=== PATIENT | male | born 1930 | race Caucasian/White ===

== ENCOUNTER 2016-09-27 01:55 | Inpatient (IN) | payer MEDICARE ==
[~2016-09-27] VITALS: Ht 175.3 cm; Wt 85.7 kg
[2016-09-27] MEDS ORDERED: ACETAMINOPHEN 325 MG TABLET PO PRN (03:00)
[2016-09-27] MEDS ORDERED: DEXAMETHASONE 4 MG TABLET PO ONE (03:00)
[2016-09-27] MEDS ORDERED: ONDANSETRON HCL/PF 4 MG/2 ML VIAL IVP PRN (03:00)
[2016-09-27] MEDS ORDERED: ZOLPIDEM TARTRATE 5 MG TABLET PO PRN (03:00)
[2016-09-27 06:00] VITALS: BP 131/65
[2016-09-27 07:16] LABS: BASOPHILS % (AUTO) 0.2 % (0.0-2.0); DIFF TOTAL % 100 %; EOSINOPHILS # (AUTO) 0.1 /CMM (0.0-0.7); EOSINOPHILS % (AUTO) 2.1 % (0.0-6.0); HEMATOCRIT 40 % (39-51); HEMOGLOBIN 13.3 g/dL (13.5-17.5); LYMPHOCYTES # (AUTO) 0.9 /CMM (0.8-4.8); LYMPHOCYTES % (AUTO) 13.5 % (20.0-44.0); MEAN CORPUSCULAR HEMOGLOBIN 32 PG (26.0-33.0); MEAN CORPUSCULAR HGB CONC 34 g/dl (31.0-36.0); MEAN CORPUSCULAR VOLUME 95 fL (80-96); MONOCYTES # (AUTO) 0.9 /CMM (0.1-1.30); MONOCYTES % (AUTO) 13.7 % (2.0-12.0); NEUTROPHILS # (AUTO) 4.9 /CMM (1.8-8.9); NEUTROPHILS % (AUTO) 70.5 % (43.0-81.0); PLATELET COUNT (AUTO) 132 /CMM (150-450); RED BLOOD CELL COUNT(AUTO) 4.16 MIL/uL (4.5-6.0); WHITE BLOOD COUNT (AUTO) 6.9 K/uL (4.3-11.0)
[2016-09-27] MEDS ORDERED: ATOR40TA PO (07:30)
[2016-09-27] MEDS ORDERED: DIGO125T PO (07:30)
[2016-09-27] MEDS ORDERED: ALCO1MED TP (07:30)
[2016-09-27] MEDS ORDERED: INSU100V7 SQ (07:30)
[2016-09-27] MEDS ORDERED: APIX5TAB PO (07:30)
[2016-09-27] MEDS ORDERED: FINA5TAB4 PO (07:30)
[2016-09-27] MEDS ORDERED: OMEP20CA10 PO (07:30)
[2016-09-27] MEDS ORDERED: ONDA-25 PO (07:30)
[2016-09-27] MEDS ORDERED: TAMS0.4C34 PO (07:30)
[2016-09-27] MEDS ORDERED: MULT1TAB69 PO (07:30)
[2016-09-27] MEDS ORDERED: FOLI1TAB16 PO (07:30)
[2016-09-27] MEDS ORDERED: CARV6.252 PO (07:30)
[2016-09-27 07:31] VITALS: BP 131/65
[2016-09-27] MEDS ORDERED: CRAN500C4 PO (07:44)
[2016-09-27] MEDS ORDERED: INSU100I14 SQ (07:44)
[2016-09-27 08:00] VITALS: BP 101/65
[2016-09-27] MEDS: ALBUTEROL HALF STRENGTH 1.25 MG/3 ML VIAL.NEB NEB SCH ×5 (08:05→23:33)
[2016-09-27] MEDS: IPRATROPIUM NEB FS 0.5 MG/2.5 ML AMPUL.NEB NEB SCH ×5 (08:05→23:33)
[2016-09-27 08:07] LABS: PHOSPHORUS 3.2 mg/dL (2.5-4.9); POTASSIUM 3.8 mmol/L (3.5-5.1)
[2016-09-27] MEDS ORDERED: IV SET PRIMARY PUMP SET 1 EA INFUS.SET MC ONE (08:45)
[2016-09-27] MEDS ORDERED: SECONDARY IV SET 1 EA INFUS.SET MC ONE ×3 (08:46→12:34)
[2016-09-27] MEDS: PANTOPRAZOLE 40 MG TABLET.DR PO SCH (08:56)
[2016-09-27] MEDS: IV NS 0.9% 1,000 ML IV PRN ×2 (08:57→23:47)
[2016-09-27] MEDS: PIPERACILLIN /TAZOBACTAM 3.375 G in IV D5W 50 ML IV SCH ×4 (09:07→23:07)
[2016-09-27] MEDS: VANCOMYCIN 1 GM in IV D5W 250 ML IV SCH ×2 (11:54→23:47)
[2016-09-27] MEDS ORDERED: DEXTROSE 50%-WATER 50 ML DISP.SYRIN IV PRN (12:30)
[2016-09-27] MEDS ORDERED: ATORVASTATIN 40 MG TABLET PO SCH (12:30)
[2016-09-27] MEDS: Magnesium 1GM/D5W 100ML PREMIX 100 ML IV SCH ×2 (15:09→16:17)
[2016-09-27] MEDS: FOLIC ACID 1 MG TABLET PO SCH (15:12)
[2016-09-27] MEDS: DIGOXIN 0.125 MG TABLET PO SCH (15:12)
[2016-09-27] MEDS ORDERED: Z GUARD REMEDY 2 OZ OINT TP PRN (15:30)
[2016-09-27] MEDS ORDERED: FEE PK DOSING 1 MIN EA MC ONE (15:37)
[2016-09-27 16:00] VITALS: BP 130/68
[2016-09-27] MEDS ORDERED: Magnesium 1GM/D5W 100ML PREMIX 100 ML IV SCH (16:30)
[2016-09-27] MEDS: BLOOD SUGAR DIAGNOSTIC 1 EACH STRIP VI SCH ×2 (17:24→21:29)
[2016-09-27] MEDS: INSULIN REGULAR, HUMAN 100 UNIT/ML 3 ML VIAL SQ PRN (17:28)
[2016-09-27] MEDS: CARVEDILOL 6.25 MG TABLET PO SCH (17:31)
[2016-09-27 20:00] VITALS: BP 127/65
[2016-09-27] MEDS: APIXABAN 5 MG TABLET PO SCH (20:00)
[2016-09-27] MEDS: TAMSULOSIN 0.4 MG CAP.SR.24H PO SCH (21:27)
[2016-09-27] MEDS: ATORVASTATIN 40 MG TABLET PO SCH (21:27)
[2016-09-27] MEDS: *INSULIN REGULAR(HUMULIN R)HUM 100 UNIT/ML VIAL SQ PRN (21:32)
[2016-09-27] MEDS: INSULIN DETEMIR 100 UNIT/ML CARTRIDGE SQ SCH (21:33)
[2016-09-28] MEDS: ALBUTEROL HALF STRENGTH 1.25 MG/3 ML VIAL.NEB NEB SCH ×5 (03:26→20:13)
[2016-09-28] MEDS: IPRATROPIUM NEB FS 0.5 MG/2.5 ML AMPUL.NEB NEB SCH ×5 (03:26→20:13)
[2016-09-28] MEDS: PIPERACILLIN /TAZOBACTAM 3.375 G in IV D5W 50 ML IV SCH ×4 (05:36→23:14)
[2016-09-28] MEDS: BLOOD SUGAR DIAGNOSTIC 1 EACH STRIP VI SCH ×4 (05:37→21:19)
[2016-09-28 07:18] LABS: BASOPHILS % (AUTO) 0.7 % (0.0-2.0); DIFF TOTAL % 100 %; EOSINOPHILS # (AUTO) 0.1 /CMM (0.0-0.7); EOSINOPHILS % (AUTO) 2.2 % (0.0-6.0); HEMATOCRIT 37 % (39-51); HEMOGLOBIN 12.3 g/dL (13.5-17.5); LYMPHOCYTES # (AUTO) 1.3 /CMM (0.8-4.8); LYMPHOCYTES % (AUTO) 21.3 % (20.0-44.0); MEAN CORPUSCULAR HEMOGLOBIN 32 PG (26.0-33.0); MEAN CORPUSCULAR HGB CONC 34 g/dl (31.0-36.0); MEAN CORPUSCULAR VOLUME 95 fL (80-96); MONOCYTES % (AUTO) 16.7 % (2.0-12.0); NEUTROPHILS # (AUTO) 3.7 /CMM (1.8-8.9); NEUTROPHILS % (AUTO) 59.1 % (43.0-81.0); PLATELET COUNT (AUTO) 130 /CMM (150-450); RED BLOOD CELL COUNT(AUTO) 3.85 MIL/uL (4.5-6.0); WHITE BLOOD COUNT (AUTO) 6.2 K/uL (4.3-11.0)
[2016-09-28 07:52] LABS: ALBUMIN 2.3 g/dL (3.4-5.0); BILIRUBIN,TOTAL 0.6 mg/dL (0.2-1.0); CALCIUM, SERUM 7.5 mg/dL (8.5-10.1); POTASSIUM 3.6 mmol/L (3.5-5.1); TOTAL PROTEIN, SERUM 6.1 g/dL (6.4-8.2)
[2016-09-28 07:59] LABS: THYROID STIMULATING HORMONE 1.324 uIU/mL (0.358-3.74)
[2016-09-28 08:00] VITALS: BP 130/59
[2016-09-28 08:04] LABS: BAND % (MANUAL) 5 % (0.0-5.0); EOSINOPHILS % (MANUAL) 4 % (0-4); LYMPHOCYTES % (MANUAL) 18 % (16-48); PLATELET ESTIMATE DECREASED
[2016-09-28] MEDS: APIXABAN 5 MG TABLET PO SCH ×2 (08:33→17:04)
[2016-09-28] MEDS: DIGOXIN 0.125 MG TABLET PO SCH (08:34)
[2016-09-28] MEDS: MULTIVITAMINS,THERAPEUTIC 1 UDTAB TABLET PO SCH (08:34)
[2016-09-28] MEDS: FOLIC ACID 1 MG TABLET PO SCH (08:34)
[2016-09-28] MEDS: CARVEDILOL 6.25 MG TABLET PO SCH ×2 (08:34→17:31)
[2016-09-28] MEDS: PANTOPRAZOLE 40 MG TABLET.DR PO SCH (08:34)
[2016-09-28] MEDS: FINASTERIDE (5 MG) 5 MG TABLET PO SCH (08:34)
[2016-09-28] MEDS: VANCOMYCIN 1 GM in IV D5W 250 ML IV SCH ×2 (12:03→23:52)
[2016-09-28] MEDS: INSULIN REGULAR, HUMAN 100 UNIT/ML 3 ML VIAL SQ PRN ×2 (12:03→17:05)
[2016-09-28] MEDS: Z GUARD REMEDY 2 OZ OINT TP SCH ×2 (12:04→17:05)
[2016-09-28] MEDS ORDERED: POTASSIUM CHLORIDE 20 MEQ POWDER PACKET PO ONE (13:00)
[2016-09-28 16:00] VITALS: BP 116/61
[2016-09-28] MEDS: ACETYLCYSTEINE 10% SOLN 400 MG/4 ML VIAL NEB SCH (16:05)
[2016-09-28] MEDS: LACTOBACILLUS RHAMNOSUS GG 1 EACH CAP.SPRINK PO SCH (17:04)
[2016-09-28] MEDS: IV NS 0.9% 1,000 ML IV PRN (17:04)
[2016-09-28 20:00] VITALS: BP 119/64
[2016-09-28] MEDS: TAMSULOSIN 0.4 MG CAP.SR.24H PO SCH (21:19)
[2016-09-28] MEDS: ATORVASTATIN 40 MG TABLET PO SCH (21:19)
[2016-09-28] MEDS: *INSULIN REGULAR(HUMULIN R)HUM 100 UNIT/ML VIAL SQ PRN (21:23)
[2016-09-28] MEDS: INSULIN DETEMIR 100 UNIT/ML CARTRIDGE SQ SCH (21:47)
[2016-09-29] MEDS: ACETYLCYSTEINE 10% SOLN 400 MG/4 ML VIAL NEB SCH ×4 (00:26→22:40)
[2016-09-29] MEDS: IPRATROPIUM NEB FS 0.5 MG/2.5 ML AMPUL.NEB NEB SCH ×7 (00:29→22:40)
[2016-09-29] MEDS: ALBUTEROL HALF STRENGTH 1.25 MG/3 ML VIAL.NEB NEB SCH ×7 (00:29→22:40)
[2016-09-29] MEDS: BLOOD SUGAR DIAGNOSTIC 1 EACH STRIP VI SCH ×4 (05:34→21:31)
[2016-09-29] MEDS: PIPERACILLIN /TAZOBACTAM 3.375 G in IV D5W 50 ML IV SCH ×3 (05:34→17:14)
[2016-09-29] MEDS: IV NS 0.9% 1,000 ML IV PRN (05:34)
[2016-09-29 07:27] LABS: BASOPHILS % (AUTO) 0.6 % (0.0-2.0); DIFF TOTAL % 100 %; EOSINOPHILS # (AUTO) 0.3 /CMM (0.0-0.7); EOSINOPHILS % (AUTO) 4.9 % (0.0-6.0); HEMATOCRIT 37 % (39-51); HEMOGLOBIN 12.4 g/dL (13.5-17.5); LYMPHOCYTES # (AUTO) 1.5 /CMM (0.8-4.8); LYMPHOCYTES % (AUTO) 28.1 % (20.0-44.0); MEAN CORPUSCULAR HEMOGLOBIN 32 PG (26.0-33.0); MEAN CORPUSCULAR HGB CONC 34 g/dl (31.0-36.0); MEAN CORPUSCULAR VOLUME 95 fL (80-96); MONOCYTES # (AUTO) 0.6 /CMM (0.1-1.30); MONOCYTES % (AUTO) 11.2 % (2.0-12.0); NEUTROPHILS % (AUTO) 55.2 % (43.0-81.0); PLATELET COUNT (AUTO) 120 /CMM (150-450); RED BLOOD CELL COUNT(AUTO) 3.86 MIL/uL (4.5-6.0); WHITE BLOOD COUNT (AUTO) 5.5 K/uL (4.3-11.0)
[2016-09-29 07:54] VITALS: BP 122/74
[2016-09-29 08:00] VITALS: BP 122/74
[2016-09-29] MEDS: LACTOBACILLUS RHAMNOSUS GG 1 EACH CAP.SPRINK PO SCH ×2 (08:30→16:41)
[2016-09-29] MEDS: PANTOPRAZOLE 40 MG TABLET.DR PO SCH (08:30)
[2016-09-29] MEDS: MULTIVITAMINS,THERAPEUTIC 1 UDTAB TABLET PO SCH (08:30)
[2016-09-29] MEDS: FINASTERIDE (5 MG) 5 MG TABLET PO SCH (08:30)
[2016-09-29] MEDS: DIGOXIN 0.125 MG TABLET PO SCH (08:31)
[2016-09-29] MEDS: FOLIC ACID 1 MG TABLET PO SCH (08:31)
[2016-09-29] MEDS: CARVEDILOL 6.25 MG TABLET PO SCH ×2 (08:31→16:42)
[2016-09-29] MEDS: Z GUARD REMEDY 2 OZ OINT TP SCH ×2 (08:33→16:50)
[2016-09-29] MEDS: APIXABAN 5 MG TABLET PO SCH ×2 (08:35→16:42)
[2016-09-29 09:02] LABS: CALCIUM, SERUM 7.8 mg/dL (8.5-10.1); CREATININE 0.9 mg/dL (0.6-1.3)
[2016-09-29] MEDS: VANCOMYCIN 1 GM in IV D5W 250 ML IV SCH (12:09)
[2016-09-29] MEDS: INSULIN REGULAR, HUMAN 100 UNIT/ML 3 ML VIAL SQ PRN ×3 (12:15→21:33)
[2016-09-29 16:00] VITALS: BP_SYST 119; BP_SYST 122; BP_DIAS 72; BP_DIAS 74
[2016-09-29 16:55] VITALS: BP 139/72
[2016-09-29 20:00] VITALS: BP 132/78
[2016-09-29] MEDS: TAMSULOSIN 0.4 MG CAP.SR.24H PO SCH (21:31)
[2016-09-29] MEDS: ATORVASTATIN 40 MG TABLET PO SCH (21:31)
[2016-09-29] MEDS: INSULIN DETEMIR 100 UNIT/ML CARTRIDGE SQ SCH (21:32)
[2016-09-30] MEDS: PIPERACILLIN /TAZOBACTAM 3.375 G in IV D5W 50 ML IV SCH ×5 (00:02→23:45)
[2016-09-30] MEDS: VANCOMYCIN 1 GM in IV D5W 250 ML IV SCH ×3 (00:53→16:46)
[2016-09-30] MEDS: ALBUTEROL HALF STRENGTH 1.25 MG/3 ML VIAL.NEB NEB SCH ×5 (03:33→20:46)
[2016-09-30] MEDS: IPRATROPIUM NEB FS 0.5 MG/2.5 ML AMPUL.NEB NEB SCH ×5 (03:33→20:45)
[2016-09-30] MEDS: BLOOD SUGAR DIAGNOSTIC 1 EACH STRIP VI SCH ×4 (06:43→21:31)
[2016-09-30] MEDS: *INSULIN REGULAR(HUMULIN R)HUM 100 UNIT/ML VIAL SQ PRN ×2 (06:44→21:35)
[2016-09-30] MEDS: PANTOPRAZOLE 40 MG TABLET.DR PO SCH ×2 (06:58→08:46)
[2016-09-30 07:26] LABS: CALCIUM, SERUM 8.4 mg/dL (8.5-10.1); CREATININE 0.9 mg/dL (0.6-1.3); POTASSIUM 3.9 mmol/L (3.5-5.1)
[2016-09-30] MEDS: ACETYLCYSTEINE 10% SOLN 400 MG/4 ML VIAL NEB SCH ×2 (07:37→15:54)
[2016-09-30 08:00] VITALS: BP 128/67
[2016-09-30] MEDS: FOLIC ACID 1 MG TABLET PO SCH (08:45)
[2016-09-30] MEDS: CARVEDILOL 6.25 MG TABLET PO SCH ×2 (08:45→16:45)
[2016-09-30] MEDS: APIXABAN 5 MG TABLET PO SCH ×2 (08:45→16:37)
[2016-09-30] MEDS: LACTOBACILLUS RHAMNOSUS GG 1 EACH CAP.SPRINK PO SCH ×2 (08:45→16:37)
[2016-09-30] MEDS: MULTIVITAMINS,THERAPEUTIC 1 UDTAB TABLET PO SCH (08:45)
[2016-09-30] MEDS: DIGOXIN 0.125 MG TABLET PO SCH (08:46)
[2016-09-30] MEDS: FINASTERIDE (5 MG) 5 MG TABLET PO SCH (08:46)
[2016-09-30] MEDS: Z GUARD REMEDY 2 OZ OINT TP SCH ×2 (11:28→16:34)
[2016-09-30 16:00] VITALS: BP 133/82
[2016-09-30] MEDS: INSULIN REGULAR, HUMAN 100 UNIT/ML 3 ML VIAL SQ PRN (16:35)
[2016-09-30 20:00] VITALS: BP 116/67
[2016-09-30] MEDS: ATORVASTATIN 40 MG TABLET PO SCH (21:32)
[2016-09-30] MEDS: TAMSULOSIN 0.4 MG CAP.SR.24H PO SCH (21:32)
[2016-09-30] MEDS: INSULIN DETEMIR 100 UNIT/ML CARTRIDGE SQ SCH (21:33)
[2016-10-01] MEDS: ALBUTEROL HALF STRENGTH 1.25 MG/3 ML VIAL.NEB NEB SCH ×4 (00:05→11:29)
[2016-10-01] MEDS: IPRATROPIUM NEB FS 0.5 MG/2.5 ML AMPUL.NEB NEB SCH ×4 (00:06→11:29)
[2016-10-01] MEDS: ACETYLCYSTEINE 10% SOLN 400 MG/4 ML VIAL NEB SCH ×2 (00:07→07:35)
[2016-10-01] MEDS: PIPERACILLIN /TAZOBACTAM 3.375 G in IV D5W 50 ML IV SCH ×2 (06:19→12:26)
[2016-10-01] MEDS: BLOOD SUGAR DIAGNOSTIC 1 EACH STRIP VI SCH ×2 (06:40→12:26)
[2016-10-01 08:00] VITALS: BP 127/65
[2016-10-01 08:05] LABS: CALCIUM, SERUM 8.2 mg/dL (8.5-10.1); CREATININE 0.9 mg/dL (0.6-1.3); POTASSIUM 3.7 mmol/L (3.5-5.1)
[2016-10-01] MEDS ORDERED: LEVO500T15 PO (08:51)
[2016-10-01] MEDS: PANTOPRAZOLE 40 MG TABLET.DR PO SCH (09:00)
[2016-10-01 09:06] VITALS: BP 127/65
[2016-10-01] MEDS: DIGOXIN 0.125 MG TABLET PO SCH (09:06)
[2016-10-01] MEDS: CARVEDILOL 6.25 MG TABLET PO SCH (09:06)
[2016-10-01] MEDS: LACTOBACILLUS RHAMNOSUS GG 1 EACH CAP.SPRINK PO SCH (09:06)
[2016-10-01] MEDS: FINASTERIDE (5 MG) 5 MG TABLET PO SCH (09:07)
[2016-10-01] MEDS: MULTIVITAMINS,THERAPEUTIC 1 UDTAB TABLET PO SCH (09:07)
[2016-10-01] MEDS: FOLIC ACID 1 MG TABLET PO SCH (09:07)
[2016-10-01] MEDS: Z GUARD REMEDY 2 OZ OINT TP SCH (09:08)
[2016-10-01] MEDS: APIXABAN 5 MG TABLET PO SCH (09:16)
[2016-10-01] MEDS ORDERED: IV NS 0.9% 250 ML IV ONE (12:36)
[2016-10-01] MEDS: INSULIN REGULAR, HUMAN 100 UNIT/ML 3 ML VIAL SQ PRN (12:41)
[2016-10-01] MEDS: VANCOMYCIN 1 GM in IV D5W 250 ML IV SCH (13:21)
== END 2016-10-01 15:00 | DRG 177 ==
LOC: UNDOADMIN 01:55 → TELE 01:55 → MED 08:36
PROVIDERS: ADMIT Nurse Practitioner Acute Care; ATTEND Nurse Practitioner Acute Care
DX: J15.6 Pneumonia due to other Gram-negative bacteria (principal); G93.40 Encephalopathy, unspecified; J96.01 Acute respiratory failure with hypoxia; D68.59 Other primary thrombophilia; I69.351 Hemiplegia and hemiparesis following cerebral infarction affecting right dominant side; D69.6 Thrombocytopenia, unspecified; K21.9 Gastro-esophageal reflux disease without esophagitis; E87.6 Hypokalemia; E83.51 Hypocalcemia; I10 Essential (primary) hypertension; I48.91 Unspecified atrial fibrillation; Z95.1 Presence of aortocoronary bypass graft; E11.65 Type 2 diabetes mellitus with hyperglycemia; E88.09 Other disorders of plasma-protein metabolism, not elsewhere classified; D64.9 Anemia, unspecified
CPT/HCPCS: 36415; 71010-TC; 80048-TC; 80053-TC; 80061-TC; 80202-TC; 82962-TC; 83735-TC; 84100-TC; 84443-TC; 85025-TC; 87040-TC; 87070-TC; 87081-TC; 94799-TC; 97001-TC; A4606; J1815; J2543; J3370; J3475; J7030; J7050; J7060; Z7610